=== PATIENT | female | born 1970 | race Caucasian/White ===

== ENCOUNTER → 2016-05-13 | Outpatient (CLI) | payer OTHER | LOC: FIMAGING 08:08 | DX: Z12.31 Encounter for screening mammogram for malignant neoplasm of breast (principal) | CPT/HCPCS: G0202 ==

== ENCOUNTER → 2017-05-24 | Outpatient (CLI) | payer OTHER | LOC: FIMAGING 12:53 | PROVIDERS: ATTEND Family Medicine | DX: Z12.31 Encounter for screening mammogram for malignant neoplasm of breast (principal) ==

== ENCOUNTER → 2017-10-02 | Outpatient (CLI) | payer OTHER | LOC: FIMAGING 07:20 | PROVIDERS: ATTEND Radiology Diagnostic Radiology | DX: I83.893 Varicose veins of bilateral lower extremities with other complications (principal) ==

== ENCOUNTER 2017-11-20 11:36 | Day surgery (SDC) | payer OTHER ==
[2017-11-20] MEDS ORDERED: MIDAZOLAM 2 MG/2 ML VIAL IVP PRN (12:09)
[2017-11-20] MEDS ORDERED: ALTEPLASE 2 MG VIAL IVP PRN (12:09)
[2017-11-20] MEDS ORDERED: GLUCAGON HCL 1 MG VIAL IVP PRN (12:09)
[2017-11-20] MEDS ORDERED: MEPERIDINE 25 MG/ML SYR IVP PRN (12:09)
[2017-11-20] MEDS ORDERED: NALOXONE HCL 0.4 MG/ML INJ IVP PRN (12:09)
[2017-11-20] MEDS ORDERED: ONDANSETRON 4 MG/2 ML VIAL IVP ONE (12:09)
[2017-11-20] MEDS ORDERED: FLUMAZENIL 0.5 MG/5 ML MDV IVP PRN (12:09)
[2017-11-20] MEDS ORDERED: HEPARIN 10,000 UNIT/10 ML MDV (1,000 UNIT/ML) IVP PRN (12:09)
[2017-11-20] MEDS ORDERED: fentaNYL 100 MCG/2 ML INJ IVP PRN (12:09)
[2017-11-20] MEDS ORDERED: PROTAMINE SULFATE 50 MG/5 ML VIAL IVP PRN (12:09)
[2017-11-20] MEDS ORDERED: NS 1,000 ML IV ONE (12:09)
[2017-11-20] MEDS ORDERED: CEFAZOLIN 2 GM/DEXTROSE/100 ML BAG IV ONE (13:02)
[2017-11-20] MEDS ORDERED: SODIUM TETRADECYL SULFATE 3% 2 ML VIAL IV ONE (13:22)
[2017-11-20] MEDS ORDERED: LIDO/EPI 1% **for epidural** 30 ML SDV ONE (13:22)
--- NOTE | 2017-11-20 13:30 | PDGENHP ---
History & Physical Chief Complaint: LLE VARICOSE VEINS. History of Present Illness: SYMPTOMS. PLEASE SEE PRIOR US AND DICTATIOIN Pertinent Past, Social, Family History: NON SMOKER. APPENDECTOMY Relevant Physical Exam: ROPEY VARICOSE VEINS MAPPED OUT. Cardiorespiratory Assessment: RRR, CTA
--- NOTE | 2017-11-20 13:31 | PDPROPOC ---
Sedation Plan of Care Sedation Plan of Care: vital signs stable, mental status noted, patient educated of risks, benefits, alternatives, patient can tolerate sedation ASA Classification: ASA 1 Planned drugs: fentanyl, midazolam Mallampati Score: Class 1 Mallampati Reference Image: Patient passed 3-3-2 rule?: Yes
[2017-11-20] MEDS ORDERED: ceFAZolin 2 GM in NS 100 ML IV ONE (13:46)
[2017-11-20] MEDS ORDERED: ceFAZolin 2 GM/DEXTROSE 100 ML IV ONE (14:00)
[2017-11-20] MEDS ORDERED: IBUPROFEN 200 MG TAB PO ONE (15:38)
[2017-11-20] MEDS ORDERED: ONDANSETRON DISINTEGRATING 4 MG TAB PO PRN (15:38)
[2017-11-20] MEDS ORDERED: HYDROCODONE/APAP 5/325 TAB PO PRN (15:38)
--- NOTE | 2017-11-20 15:51 | PDRADPN ---
Radiology Procedure Note Date of Procedure: 11/20/17 Radiologist: Anjali Long Anesthesia: IV Sedation Pre-op Diagnosis: LLE VARICOSE VEINS Post-op Diagnosis: SAME Indication: SIGNIFICANT SYMPTOMS Procedure: LASER, SCLEROTHERAPY, PHLEBECTOMY Finding(s): LARGE ROPEY VARICOSE VEINS REMOVED. Inf/Abcess present in the surg proc area at time of surgery?: No
[2017-11-20 19:53] VITALS: BP 134/80
== END 2017-11-20 19:25 | disposition home or self-care (01) ==
LOC: FIMAGING 11:36
PROVIDERS: ATTEND Radiology Diagnostic Radiology
DX: I83.892 Varicose veins of left lower extremity with other complications (principal)
CPT/HCPCS: 36471; 36478; 37799; C1769; J0690; J2250; J2310; J3010

== ENCOUNTER → 2018-06-11 | Outpatient (CLI) | payer OTHER | LOC: FIMAGING 09:14 | PROVIDERS: ATTEND Family Medicine | DX: Z12.31 Encounter for screening mammogram for malignant neoplasm of breast (principal) ==

== ENCOUNTER → 2018-06-25 | Outpatient (CLI) | payer OTHER | LOC: FIMAGING 13:24 | PROVIDERS: ATTEND Family Medicine | DX: N60.01 Solitary cyst of right breast (principal) ==

== ENCOUNTER → 2018-07-02 | Outpatient (CLI) | payer OTHER | LOC: FIMAGING 07:16 | PROVIDERS: ATTEND Obstetrics & Gynecology | DX: D25.1 Intramural leiomyoma of uterus (principal); D25.2 Subserosal leiomyoma of uterus; N83.01 Follicular cyst of right ovary ==